=== PATIENT | female | born 1960 | race African-American/Black ===

== ENCOUNTER 2018-09-30 22:13 | Emergency (ER) | payer MEDICARE, MEDICAID ==
[~2018-09-30] VITALS: Ht 165.1 cm; Wt 77.1 kg
[~2018-09-30 22:13] MED LIST: ATIVAN0.5 MG ORAL
[2018-09-30 22:45] VITALS: BP 157/85
--- NOTE | 2018-09-30 22:47 | NUR ---
ER Nurse Note: Pt came from home c/o left hip/back pain that radiates to her leg. Pt states hip/back pain is a sharp pain 10/10 that radiates to the groin; left knee to leg pain 10/10 pain. Pt states hx of sciatica. Pt a&ox4, VSS, no signs of distress. Will continue to montior.
[2018-09-30] MEDS ORDERED: LIDOCAINE700 M1 TP (23:22)
[2018-09-30] MEDS ORDERED: VOLTAREN100 G1 TP (23:22)
[2018-09-30 23:25] VITALS: BP 157/85
--- NOTE | 2018-09-30 23:25 | NUR ---
ER Nurse Note: Pt seen, treated, medically cleared by ERMD for discharge. Discharge instructions given with repeat verbalization by pt. Pt refused to sign and left paperwork on bed. Instructed pt to follow up with primary care physican within 2-3 days. Pt a&ox4, VSS, no signs of distress. All orders completed per ERMD orders. Left with steady gait via own transportation.
--- NOTE | 2018-10-01 04:21 | Emergency Room Report ---
History of Present Illness General Chief Complaint: Pain Source: Patient Present Illness HPI Patient is a 57-year-old female presented after increased pain to her left lower extremity as well as her left buttock. Patient reports having prior history of sciatica. She states she has had this pain for quite a long time. Patient states that she had previous MRI which showed disc bulge to her lumbar area. She reports having multiple medications that she is previously been prescribed for pain. She reports having worsening symptoms over the past few days. She denies any recent trauma. She denies any weight loss or fever. Allergies: Coded Allergies: No Known Allergies (Unverified , 02/04/13) Patient History Past Medical History: see triage record Reviewed Nursing Documentation: PMH: Agreed; PSxH: Agreed Nursing Documentation-PMH Past Medical History: No History, Except For Review of Systems All Other Systems: negative except mentioned in HPI Physical Exam Vital Signs Date Time Temp Pulse Resp B/P (MAP) Pulse Ox O2 Delivery O2 Flow Rate FiO2 09/30/18 22:26 97.7 69 18 157/85 (109) 96 Room Air General Appearance: well appearing, no apparent distress, alert, GCS 15 Head: normocephalic, atraumatic ENT: hearing grossly normal, normal voice Neck: full range of motion, supple Respiratory: no respiratory distress, speaking full sentences Cardiovascular #1: normal inspection Gastrointestinal: normal inspection Musculoskeletal: normal inspection, back normal, normal range of motion, other - straight leg raise negative bilaterally Neurologic: alert, oriented x3, responsive, financial service professional III-XII nml as tested, normal gait Psychiatric: normal inspection, mood/affect normal Skin: no rash Medical Decision Making Diagnostic Impression: Primary Impression: Chronic back pain Additional Impressions: Radiculopathy Pain ER Course .Patient presented for low back pain. Differential diagnosis include was not limited to lumbar disc herniation, spinal stenosis, vascular compromise among others. Patient has a benign exam and does not appear to require any further imaging or laboratory testing at this time. Patient appears to have a benign exam. She was noted to have normal movement to her lower extremities. She does not appear to have any evidence of weakness. Patient was noted to be able to sit upright as well as have her feet up to approximately 90 degrees. Patient reports having some prior history of lumbar disc disease. Patient does not appear to have any evidence of cauda equina and reportedly had been urinating normally. Patient was given prescription for medications for pain. She is advised to follow-up with her primary care physician for reevaluation and referral to physical therapy. Last Vital Signs Date Time Temp Pulse Resp B/P (MAP) Pulse Ox O2 Delivery O2 Flow Rate FiO2 09/30/18 23:25 97.7 69 18 157/85 96 Room Air Status: improved Disposition: HOME, SELF-CARE Condition: Stable Scripts Lidocaine (Lidocaine) 1 Each Adh..patch 5 % TP DAILY, #30 PATCH Prov: Greg Marroquin MD 09/30/18 Diclofenac Sodium (VOLTAREN) 100 Gm Gel..gram. 5 GM TP DAILY, #100 GM Prov: Greg Marroquin MD 09/30/18 Referrals: NON PHYSICIAN (PCP) Patient Instructions: Chronic Back Pain Greg Marroquin MD Oct 01, 2018 04:21
== END 2018-09-30 23:25 | disposition home or self-care (01) ==
LOC: EMR 22:48
DX: M54.5 Low back pain (principal); G89.29 Other chronic pain; M54.10 Radiculopathy, site unspecified
CPT/HCPCS: 99282